=== PATIENT | female | born 1995 | race Caucasian/White ===

== ENCOUNTER 2016-12-17 11:36 | Emergency (ER) | payer OTHER ==
[2016-12-17 11:41] VITALS: RESP 16; TEMP 97.9; O2SAT 96
--- NOTE | 2016-12-17 13:11 | DX ---
Left Elbow, Three Views History: Pain post trauma. "Pop" post lifting. Findings: No fracture, effusion or dislocation is identified. Mineralization is normal. Impression: Nothing acute identified.
--- NOTE | 2016-12-17 13:18 | EDPHY ---
H & P Time Seen by Provider: 12/17/16 11:56 HPI/ROS: CHIEF COMPLAINT: Left elbow injury HISTORY OF PRESENT ILLNESS: 21-year-old female presents to the emergency department by private vehicle complaining of pain in her left elbow. Approximately 1 hour prior to arrival she was putting her mom's backpack in the backseat of a car and felt like her elbow dislocated. When she apparently started to flex her left elbow at that relocated. She is complaining of severe pain in her left elbow. 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 She is right-hand dominant. She has pain especially with range of motion of her left elbow. She denies paresthesias in her fingers. Denies any other trauma or injury. ROS: Denies numbness or tingling in her fingers, pain in her left hand, left wrist or shoulder. Past Medical/Surgical History: Fibromyalgia, history of chronic pain Social History: single Smoking Status: Former smoker Physical Exam: examination of the left elbow reveals no obvious effusion. No obvious deformity. Diffuse tenderness with palpation to the left elbow. She is holding her left elbow In 90 of flexion. She is able to fully flex and fully extend her left elbow. There is no evidence dislocation. She is able to fully supinate her left elbow. She has full range of motion of her left wrist and left shoulder. She has normal sensation to light touch with normal 2 point discrimination. Strong radial pulse at the left wrist. Constitutional: Initial Vital Signs Temperature (C) 36.6 C 12/17/16 11:37 Heart Rate 89 12/17/16 11:37 Respiratory Rate 16 12/17/16 11:37 Blood Pressure 119/64 12/17/16 11:37 O2 Sat (%) 96 12/17/16 11:37 O2 Delivery Mode Room Air Allergies/Adverse Reactions: Penicillins Allergy (Verified 04/26/16 22:14) Home Medications: Medication Instructions Recorded Lyrica 75mg (RX) 75 mg PO DAILY 04/26/16 Norethindrone-E.estradiol-Iron 1 tab PO DAILY 04/26/16 [GILDESS FE 1-20 TABLET] ALPRAZolam [Xanax 1 MG (*)] 1 - 2 mg PO DAILY PRN 04/29/16 DULoxetine [Cymbalta 30 MG (*)] 90 mg PO DAILY 04/29/16 Multivitamins [Multivitamin (*)] 1 each PO DAILY 04/29/16 MDM/Departure - MDM Diagnostics: X-rays of the left elbow reveal no fractures. This is reviewed by myself the PAC system as well as by the radiologist. Procedures: Patient was placed in a sling for comfort and support and examined post application in good placement with normal [employer]. ED Course/Re-evaluation: 21-year-old female presents with left elbow pain. X-rays reveal no fractures. She has no evidence dislocation on examination. She was placed in a sling for comfort and support. Patient has a history of fibromyalgia requiring chronic pain medication including oxycodone 10 mg three times daily. She was not given additional pain medication. Encouraged her to take anti- inflammatories and she was given orthopedic referral. - Depart Disposition: Home, Routine, Self-Care Clinical Impression: Sprain of left elbow Condition: Good Instructions: Elbow Sprain (ED) Additional Instructions: Sling for comfort and support. Ibuprofen 400 mg every 8 hours as needed for pain. You may continue your oxycodone as prescribed. Follow up with orthopedic surgeon this week to recheck. Referrals: Perez Toth MD [Medical Doctor] - 2-3 days without fail (Orthopedic surgeon on-call)
[2016-12-17 13:25] VITALS: BP 108/70; PULSE 76
== END 2016-12-17 13:25 | disposition home or self-care (01) ==
DX: S53.402A Unspecified sprain of left elbow, initial encounter (principal); Z87.891 Personal history of nicotine dependence; X58.XXXA Exposure to other specified factors, initial encounter; Y93.89 Activity, other specified

== ENCOUNTER → 2017-04-15 | Outpatient (CLI) | payer OTHER | LOC: FIMAGING 07:07 | PROVIDERS: ATTEND Internal Medicine Hematology & Oncology | DX: R68.89 Other general symptoms and signs (principal); M54.6 Pain in thoracic spine ==

== ENCOUNTER → 2018-02-17 | Outpatient (CLI) | payer OTHER | LOC: FIMAGING 09:53 | PROVIDERS: ATTEND Physician Assistant | DX: R14.0 Abdominal distension (gaseous) (principal) | CPT/HCPCS: 78264; A9541 ==